=== PATIENT | male | born 1975 | race Caucasian/White ===

== ENCOUNTER 2021-02-26 19:17 | Emergency (ER) | payer BC ==
[~2021-02-26] VITALS: Ht 182.9 cm; Wt 130.0 kg
[~2021-02-26 19:17] MED LIST: CYCL-1 PO; ONDA4TAB6 PO
[2021-02-26] MEDS ORDERED: dexamethasone sod phosphate 10mg/ml inj IV STA (20:16)
[2021-02-26] MEDS ORDERED: normal saline 1000ML IV soln IVB ONE (20:20)
[2021-02-26] MEDS ORDERED: meclizine 12.5mg tablet PO ONE (20:20)
[2021-02-26] MEDS ORDERED: diazepam inj 5 MG/ML inj. IV ONE (20:20)
[2021-02-26] MEDS ORDERED: metoclopramide 5 mg/ml inj IV ONE (20:20)
[2021-02-26] MEDS ORDERED: famotidine/PF 10 mg/ml inj IV ONE (20:20)
[2021-02-26 20:48] LABS: BASOPHILS # (AUTO) 0.1 X10'3 (0-0.2); BASOPHILS % (AUTO) 0.6 % (0-1); EOSINOPHILS # (AUTO) 0.1 X10'3 (0-0.9); EOSINOPHILS % (AUTO) 0.7 % (0-6); HEMATOCRIT 45.1 % (42.0-52.0); LYMPHOCYTES # (AUTO) 1.4 X10'3 (1.1-4.8); LYMPHOCYTES % (AUTO) 14.8 % (21-51); MEAN CORPUSCULAR HEMOGLOBIN 32.3 PG (27.0-31.0); MEAN CORPUSCULAR HGB CONC 35.4 g/dL (33.0-36.5); MEAN CORPUSCULAR VOLUME 91.3 FL (78-98); MEAN PLATELET VOLUME 8.5 FL (7.4-10.4); MONOCYTES # (AUTO) 0.4 X10'3 (0-0.9); MONOCYTES % (AUTO) 4.5 % (2-12); NEUTROPHILS # (AUTO) 7.7 X10'3 (1.8-7.7); NEUTROPHILS % (AUTO) 79.4 % (42-75); PLATELET COUNT 204 X10'3 (140-440); RED BLOOD COUNT 4.94 X10'6 (4.70-6.10); RED CELL DISTRIBUTION WIDTH 13.3 % (11.5-14.5); WHITE BLOOD COUNT 9.7 X10'3 (4.5-11.0)
--- NOTE | 2021-02-26 21:00 | NUR ---
PT PRESENTS WITH DIAPHORETIC SKIN AND N/V NO DIARRHEA; PT STATES HE WAS [place] [employer] WITH HIS FAMILY WHEN HE STARTED FEELING LIKE HE WAS GOING TO PASS OUT; PT IN MILD DISTRESS UPON ARRIVAL RETCHING AND FEELING NAUSEATED; PT HAS NO HX OF VERTIGO BUT MD THINKS THIS COULD POSSIBLY BE THAT; PT HAS HX MILD HYPTERTENSION AND DM II, BUT GLU NORMAL UPON ARRIVAL AND VSS. PLACED ON CARDIACMONITOR.
[2021-02-26 21:02] LABS: ALANINE AMINOTRANSFERASE 67 U/L (12-78); ALBUMIN/GLOBULIN RATIO 1.1 (1.1-1.5); ALKALINE PHOSPHATASE 84 IU/L (46-116); ANION GAP 11 (8-16); ASPARTATE AMINO TRANSFERASE 20 U/L (10-37); BILIRUBIN,TOTAL 0.4 MG/DL (0.1-1.0); BLOOD UREA NITROGEN 16 MG/DL (7-18); BUN/CREATININE RATIO 16.7 (5.4-32.0); CALCIUM 8.9 MG/DL (8.5-10.1); CHLORIDE 106 MMOL/L (99-107); CREATININE 0.96 MG/DL (0.60-1.10); GLUCOSE 192 MG/DL (70-104); POTASSIUM 3.3 MMOL/L (3.5-5.1); SODIUM 143 MMOL/L (135-145); TOTAL CARBON DIOXIDE 26.1 MMOL/L (24-32); TOTAL PROTEIN 7.8 G/DL (6.4-8.2); eGFR 85 ML/MIN
[2021-02-26 21:06] LABS: LIPASE 55 U/L (73-393); TROPONIN I < 0.04 NG/ML (0.0-0.05)
[2021-02-26] MEDS ORDERED: METH4TAB3 PO (21:33)
[2021-02-26] MEDS ORDERED: MECL-159 PO (21:33)
--- NOTE | 2021-02-26 22:05 | NUR ---
SPKE WITH PT AGAIN, PT FEELS MUCH BETTER AFTER MEDS; STABLE FOR DC
[2021-02-26] MEDS ORDERED: diphenhydrAMINE 50 mg/ml inj IM ONE (22:45)
[2021-02-26] MEDS ORDERED: ondansetron 4mg rapidly disintigrating tab PO ONE (22:45)
[2021-02-26] MEDS ORDERED: ONDA4TAB6 PO (22:47)
[2021-02-26 23:08] VITALS: BP 138/68
== END 2021-02-26 23:09 | disposition home or self-care (01) ==
LOC: ER 19:18
DX: R42 Dizziness and giddiness (principal); I10 Essential (primary) hypertension; G89.29 Other chronic pain; Z98.890 Other specified postprocedural states; Z88.0 Allergy status to penicillin; Z88.2 Allergy status to sulfonamides; Z79.899 Other long term (current) drug therapy
CPT/HCPCS: 36415; 71045; 80053; 83690; 84484; 85025; 93005; 96372; 96374; 96375; 99285; J1100; J1200; J2765; J3360; J3490; J7030; J8597